=== PATIENT | male | born 1970 | race Hispanic/Latino ===

== ENCOUNTER 2021-10-26 13:20 | Emergency (ER) | payer BC, OTHER ==
[~2021-10-26] VITALS: Ht 172.7 cm; Wt 93.9 kg
[2021-10-26] MEDS ORDERED: HYDROCODONE/ACETAMINOPHEN 5/325 MG TAB PO ONE (14:00)
[2021-10-26] MEDS ORDERED: NAPR-1180 PO (14:24)
[2021-10-26 15:10] VITALS: BP 115/65
== END 2021-10-26 15:11 | disposition home or self-care (01) ==
LOC: EDH 13:20
DX: S82.445A Nondisplaced spiral fracture of shaft of left fibula, initial encounter for closed fracture (principal); V49.69XA Unspecified car occupant injured in collision with other motor vehicles in traffic accident, initial encounter; Y93.89 Activity, other specified; Y92.413 State road as the place of occurrence of the external cause; Y99.8 Other external cause status
CPT/HCPCS: 73610; 73630